=== PATIENT | male | born 1990 | race Caucasian/White ===

== ENCOUNTER 2023-11-02 19:58 | Emergency (ER) | payer SELFPAY ==
[~2023-11-02] VITALS: Ht 180.3 cm; Wt 72.6 kg
[2023-11-02 20:12] LABS: BASO % 0.4 % (0.0-1.0); EOS % 0.3 % (1.0-4.0); HEMATOCRIT 40.7 % (42.0-52.0); LYMPH # 1.9 10*3/uL (1.3-4.4); MEAN CELL VOLUME 86.6 fl (80.0-94.0); MEAN CORPUSCULAR HGB 28.9 pg (27.0-31.0); MEAN CORPUSCULAR HGB CONC 33.4 g/dl (33.0-37.0); MEAN PLATELET VOLUME 10.5 fl (9.6-12.3); MONO # 0.7 10*3/uL (0.1-1.0); MONO % 7.1 % (3.0-9.0); NEUT # 6.8 10*3/uL (2.3-7.9); PLATELET COUNT AUTOMATED 211 10*3/uL (130-400); RED CELL DISTRI WIDTH 11.9 % (0-14.5); WHITE BLOOD COUNT 9.4 10*3/uL (4.8-10.8)
[2023-11-02 20:26] LABS: BUN 14 mg/dl (9-23); CHLORIDE 103 mmol/L (98-107)
[2023-11-02] MEDS ORDERED: Ketorolac Tromethamine 30 MG/ML VIAL IV ONE (21:15)
== END 2023-11-02 21:36 | disposition home or self-care (01) ==
LOC: ED 19:58
PROVIDERS: Internal Medicine
DX: E10.649 Type 1 diabetes mellitus with hypoglycemia without coma (principal)